=== PATIENT | male | born 1955 | race Caucasian/White ===

== ENCOUNTER → 2018-01-05 | Outpatient (CLI) | payer OTHER ==
[~2018-01-05] MED LIST: APAP500 PO; ASPIR 8181 MG PO; CRESTOR10 MG PO; GRALISE; GRALISE600 MG PO; HYDROCODON-ACE1 EAC7 PO; IBUPROFEN 200200 M1 PO; MOBIC15 MG PO; NORCO 5-325 TA1 EACH PO
== END ==
LOC: M.RAD 10:43
DX: R07.89 Other chest pain (principal)

== ENCOUNTER 2018-08-20 08:29 | Inpatient (IN) | payer MEDICARE, OTHER ==
[~2018-08-20] VITALS: Ht 177.8 cm; Wt 83.9 kg
[2018-08-20 08:40] VITALS: BP 122/71
[2018-08-20 09:16] LABS: ABSOLUTE BASOPHILS 0.1 thou/uL (0.0-0.2); ABSOLUTE LYMPHOCYTES 1.7 thou/uL (0.8-5.3); ABSOLUTE MONOCYTES 1.4 thou/uL (0.0-1.2); ABSOLUTE NEUTROPHILS 15.2 thou/uL (1.6-8.1); BASOPHILS 0.5 %; HEMATOCRIT 41.7 % (42.0-52.0); HEMOGLOBIN 14.3 gm/dL (14.0-18.0); LYMPHOCYTES 9.1 %; MCH 30.8 pg (26.0-34.0); MCHC 34.3 g/dL (28.0-37.0); MCV 89.9 fL (80.0-100.0); MONOCYTES 7.7 %; MPV 8.8 fl. (7.2-11.1); NUCLEATED RBCS 0 /100WBC; PLATELET COUNT* 194 thou/uL (150-400); POLYS 82.7 %; RBC 4.64 mil/uL (4.50-6.00); RDW-CV 13.7 % (10.5-14.5); WBC 18.4 thou/uL (4.0-11.0)
[2018-08-20 09:17] LABS: URINE BLOOD 3+ (Negative); URINE CLARITY CLEAR; URINE COLOR YELLOW; URINE GLUCOSE-RANDOM NEGATIVE (Negative); URINE KETONES 2+ (Negative); URINE PROTEIN 1+ (Negative); URINE UROBILINOGEN 0.2 E.U./dl (0.2-1.0)
[2018-08-20 09:22] LABS: ICTOTEST (BILI CONFIRMATORY) Positive (Negative); SQUAMOUS 0-3 Few /LPF (0-3); URINE BILIRUBIN 1+ (Negative); URINE LEUKOCYTES-REFLEX 2+ (Negative); URINE NITRITE-REFLEX POSITIVE (Negative)
[2018-08-20 09:23] LABS: BACTERIA-REFLEX >30 Many /HPF (None Seen); CASTS None Seen /LPF (None Seen); CRYSTALS None Seen /LPF (None Seen); MUCUS None Seen strn/LPF (None Seen); URINE RBC >20 Many /HPF (0-2); URINE WBC-REFLEX >25 Many /HPF (0-5)
[2018-08-20 09:29] LABS: ANION GAP 13 mmol/L (7-16); BUN 18 mg/dL (7-18); CALCIUM 9.2 mg/dL (8.5-10.1); CHLORIDE 101 mmol/L (98-107); CO2 24 mmol/L (21-32); CREATININE 1.4 mg/dL (0.6-1.3); GLUCOSE 118 mg/dL (70-99); POTASSIUM 4.6 mmol/L (3.5-5.1); SODIUM 138 mmol/L (136-145)
[2018-08-20 09:39] LABS: ALBUMIN 3.7 g/dL (3.4-5.0); ALKALINE PHOSPHATASE 76 U/L (46-116); LIPASE 68 U/L (73-393); SGOT 13 U/L (15-37); SGPT 27 U/L (30-65); TOTAL BILIRUBIN 1.6 mg/dL (<0.1-1.0); TOTAL PROTEIN 8.3 g/dL (6.4-8.2); TROPONIN-I LEVEL <0.06 ng/mL (<0.06)
[2018-08-20 12:03] VITALS: BP 136/77
[2018-08-20 12:45] VITALS: BP 150/70
[2018-08-20 16:30] VITALS: BP 152/80
[2018-08-20 22:30] VITALS: BP 142/70
[2018-08-21 04:21] LABS: HEMATOCRIT 37.3 % (42.0-52.0); MCH 30.2 pg (26.0-34.0); MCHC 32.9 g/dL (28.0-37.0); MCV 91.8 fL (80.0-100.0); MPV 9.3 fl. (7.2-11.1); RBC 4.06 mil/uL (4.50-6.00); RDW-CV 13.7 % (10.5-14.5)
[2018-08-21 04:42] LABS: CALCIUM 8.5 mg/dL (8.5-10.1); CREATININE 1.3 mg/dL (0.6-1.3); HEMOGLOBIN 12.3 gm/dL (14.0-18.0); MAGNESIUM 2.1 mg/dL (1.8-2.4); POTASSIUM 3.9 mmol/L (3.5-5.1)
[2018-08-21 07:54] VITALS: BP 144/69
--- NOTE | 2018-08-21 14:46 | EKG ---
[place] [address] ELECTROCARDIOGRAM REPORT Name: SUE POON Room: [address] ADM IN M.R.#: [id number] Admission: 08/20/18 Attend Phys: Jed Jenkins MD Discharge: Date of : 51 Report #: [id number] THIS REPORT FOR: //name// [facility] ED Test Date: 2018-08-20 Test Time: 10:16:52 Pat Name: SUE POON Department: Room: [facility] Gender: M Management Trainer: [facility] : 1955 Requested By: Sandro Zepeda Order Number: [id number] MD: Vazquez Combs Measurements Intervals [place] Rate: 89 P: 74 UT: 160 QRS: 25 QRSD: 82 T: 65 QT: 346 QTc: 421 Interpretive Statements Sinus rhythm No previous ECG available for comparison Electronically Signed On 08-21-2018 14:46:30 CDT by Vazquez Combs [email or web address] <ELECTRONICALLY SIGNED> By: Vazquez Combs MD, [facility] 08/21/18 1446 1016 [facility] Vazquez Combs MD, [facility] /EPI
[2018-08-21 16:00] VITALS: BP 152/62
[2018-08-22] VITALS: BP 127/70
[2018-08-22 04:10] LABS: HEMATOCRIT 36.6 % (42.0-52.0); HEMOGLOBIN 12.4 gm/dL (14.0-18.0); MCH 30.7 pg (26.0-34.0); MCHC 33.8 g/dL (28.0-37.0); MCV 90.7 fL (80.0-100.0); MPV 9.2 fl. (7.2-11.1); RBC 4.03 mil/uL (4.50-6.00); RDW-CV 13.6 % (10.5-14.5); WBC 11.3 thou/uL (4.0-11.0)
[2018-08-22 04:22] LABS: CALCIUM 8.6 mg/dL (8.5-10.1); CREATININE 1.2 mg/dL (0.6-1.3); MAGNESIUM 2.4 mg/dL (1.8-2.4); POTASSIUM 4.7 mmol/L (3.5-5.1)
[2018-08-22 07:40] VITALS: BP 120/71
[2018-08-22 16:36] VITALS: BP 149/77
[2018-08-22 20:40] VITALS: BP 130/67
[2018-08-23 04:06] LABS: HEMOGLOBIN 12.3 gm/dL (14.0-18.0); MCH 30.5 pg (26.0-34.0); MCHC 33.4 g/dL (28.0-37.0); MCV 91.2 fL (80.0-100.0); MPV 8.9 fl. (7.2-11.1); RBC 4.05 mil/uL (4.50-6.00); RDW-CV 13.7 % (10.5-14.5); WBC 10.2 thou/uL (4.0-11.0)
[2018-08-23 04:24] LABS: CALCIUM 8.5 mg/dL (8.5-10.1); CREATININE 1.2 mg/dL (0.6-1.3); POTASSIUM 4.8 mmol/L (3.5-5.1)
[2018-08-23 07:50] VITALS: BP 116/71
[2018-08-23] MEDS ORDERED: FLOMAX0.4 MG PO (08:33)
[2018-08-23] MEDS ORDERED: ANUSOL-HC25 MG RECTAL (08:33)
[2018-08-23] MEDS ORDERED: AUGMENTIN 875-1 EACH PO (08:33)
[2018-08-23] MEDS ORDERED: PROCTOFOAM15 GM RECTAL (08:33)
[2018-08-23] MEDS ORDERED: DOK PLUS TABLE1 EACH PO (08:33)
[2018-08-23 11:26] VITALS: BP 116/71
== END 2018-08-23 12:44 | disposition home or self-care (01) | DRG 871 ==
LOC: M.ERS 08:29 → M.ORTHSURG 11:12 → M.TBA-ER 11:12 → M.ORTHSURG 12:11
PROVIDERS: Family Medicine; Surgery; ADMIT Internal Medicine
DX: A41.81 Sepsis due to Enterococcus (principal); N17.0 Acute kidney failure with tubular necrosis; N39.0 Urinary tract infection, site not specified; E86.0 Dehydration; K64.5 Perianal venous thrombosis; N40.1 Benign prostatic hyperplasia with lower urinary tract symptoms; R33.8 Other retention of urine; K59.00 Constipation, unspecified; E86.9 Volume depletion, unspecified; Z96.612 Presence of left artificial shoulder joint; Z96.611 Presence of right artificial shoulder joint; Z79.82 Long term (current) use of aspirin; Z79.899 Other long term (current) drug therapy